=== PATIENT | female | born 1985 | race Caucasian/White ===

== ENCOUNTER 2017-08-16 07:19 | Emergency (ER) | payer OTHER ==
[~2017-08-16] VITALS: Ht 172.7 cm; Wt 64.0 kg
[~2017-08-16 07:19] MED LIST: BACT800T5 PO; OMEP20TA39 PO; PYRI200T4 PO
[2017-08-16 07:30] VITALS: BP 118/67; PULSE 63; RESP 18; O2SAT 100
--- NOTE | 2017-08-16 07:41 | PD ---
HPI Chief Complaint: Syncope/Near-Syncope Time Seen by Provider: 07:40 Travel History International Travel<30 days: No Contact w/Intl Traveler<30days: No Traveled to known affect area: No History of Present Illness HPI 32-year-old female came to the emergency room with history of a syncopal episode this morning when she was in the bathroom having a bowel movement. Patient says that she's been having some vaginal spotting. Patient is 5 and half weeks . She has had in vitro fertilization. This morning she went to use the restroom to have a bowel movement. After she was done she felt like she had to go some more and after that she felt lightheaded and passed out. Her found her slumped between the toilet and the wall next to the toilet. Patient says that she did hit her head when she fell. Currently she is awake, answering questions appropriately and has slight headache. No history of vomiting or diarrhea. No history of nausea vomiting. No history of fever or chills. As per the patient the so far has been going okay. She has never had any syncopal episodes in the past. Slight abdominal discomfort. Her vital signs were stable. Patient also says that for past 1 week her left calf has been cramping. No previous history of DVT or PE. [facility] Past Medical History Narrative Medical List of her past medical, surgical, social and family history is reviewed from the nursing note. Medical History: Denies Significant Hx Cancer: No (PRECANCEROUS CYSTS REMOVED FROM CERVIX) Gastrointestinal Disorders: Yes (GERD) GERD: Yes Reproductive: Yes ?: : 1 : 1 Past Surgical History Surgical History: No Previous Surgery Gynecologic Surgery: Yes (PRECANCEROUS CYSTS REMOVED FROM CERVIX) Other Surgery: Yes (BREAST AUGMENTATION) Social History Alcohol Use: No Tobacco Use: No Substance Use: No Allergies-Medications (Allergen,Severity, Reaction): Coded Allergies: No Known Allergies (Unverified , 05/02/16) Comments No known drug allergies. Reported Meds & Prescriptions Reported Meds & Active Scripts Active Reported Endometrin Supp (Progesterone (Vaginal) Supp) 100 Mg Supp 100 Mg VAGINAL TID NEB Omeprazole 20 Mg Tab 20 Mg PO DAILY Narrative Medication List of her home medications reviewed from the nursing note. Review of Systems Except as stated in HPI: all other systems reviewed are Neg Genitourinary: Positive: Vaginal Bleeding Neurologic: Positive: Syncope Physical Exam Narrative GENERAL: Awake, alert, no obvious distress SKIN: Focused skin assessment warm/dry. HEAD: Atraumatic. Normocephalic. EYES: Pupils equal and round. No scleral icterus. No injection or drainage. ENT: No nasal bleeding or discharge. Mucous membranes pink and moist. NECK: Trachea midline. No JVD. CARDIOVASCULAR: Regular rate and rhythm. No murmur appreciated. RESPIRATORY: No accessory muscle use. Clear to auscultation. Breath sounds equal bilaterally. GASTROINTESTINAL: Abdomen soft, non-tender, nondistended. Hepatic and splenic margins not palpable. MUSCULOSKELETAL: No obvious deformities. No clubbing. No cyanosis. No edema. NEUROLOGICAL: Awake and alert. No obvious cranial nerve deficits. Motor grossly within normal limits. Normal speech. PSYCHIATRIC: Appropriate mood and affect; insight and judgment normal. Data Data Last Documented VS Vital Signs Date Time Temp Pulse Resp B/P (MAP) Pulse Ox O2 Delivery O2 Flow Rate FiO2 08/16/17 08:18 100 Room Air 08/16/17 08:13 63 18 08/16/17 07:30 118/67 (84) Orders Orders Electrocardiogram (08/16/17 08:00) Basic Metabolic Panel (Bmp) (08/16/17 08:00) Complete Blood Count With Diff (08/16/17 08:00) Prothrombin Time / Inr (Pt) (08/16/17 08:00) Troponin I (08/16/17 08:00) Ecg Monitoring (08/16/17 08:00) Bilateral Bp Monitoring (08/16/17 08:00) Iv Access Insert/Monitor (08/16/17 08:00) Oximetry (08/16/17 08:00) Oxygen Administration (08/16/17 08:00) Sodium Chloride 0.9% Flush (Ns Flush) (08/16/17 08:00) Sodium Chlor 0.9% 1000 Ml Inj (Ns 1000 M (08/16/17 08:00) Us Leg Venous Doppler (08/16/17 ) Beta Hcg (Quant/Titer) (08/16/17 09:59) Us Pelvis (Ques Pr/Ect)W Trans (08/16/17 ) Ed Discharge Order (08/16/17 13:10) Labs Laboratory Tests Test 08/16/17 08:28 08/16/17 09:28 White Blood Count 6.0 TH/MM3 Red Blood Count 4.32 MIL/MM3 Hemoglobin 13.1 GM/DL Hematocrit 38.7 % Mean Corpuscular Volume 89.6 FL Mean Corpuscular Hemoglobin 30.4 PG Mean Corpuscular Hemoglobin Concent 33.9 % Red Cell Distribution Width 12.1 % Platelet Count 177 TH/MM3 Mean Platelet Volume 8.9 FL Neutrophils (%) (Auto) 54.6 % Lymphocytes (%) (Auto) 34.9 % Monocytes (%) (Auto) 6.9 % Eosinophils (%) (Auto) 3.1 % Basophils (%) (Auto) 0.5 % Neutrophils # (Auto) 3.3 TH/MM3 Lymphocytes # (Auto) 2.1 TH/MM3 Monocytes # (Auto) 0.4 TH/MM3 Eosinophils # (Auto) 0.2 TH/MM3 Basophils # (Auto) 0.0 TH/MM3 CBC Comment DIFF FINAL Differential Comment Prothrombin Time 10.9 SEC Prothromb Time International Ratio 1.0 RATIO Blood Urea Nitrogen 14 MG/DL Creatinine 0.69 MG/DL Random Glucose 118 MG/DL Calcium Level 8.8 MG/DL Sodium Level 137 MEQ/L Potassium Level 3.8 MEQ/L Chloride Level 104 MEQ/L Carbon Dioxide Level 25.2 MEQ/L Anion Gap 8 MEQ/L Estimat Glomerular Filtration Rate 100 ML/MIN Troponin I LESS THAN 0.02 NG/ML Human Chorionic Gonadotropin, Quant 34019 MIU/ML MDM Medical Decision Making Medical Screen Exam Complete: Yes Emergency Medical Condition: Yes Medical Record Reviewed: Yes Interpretation(s) Twelve-lead EKG was reviewed by me. Normal sinus rhythm, normal axis, nonspecific ST-T wave changes. Heart rate of 63 bpm. Differential Diagnosis Electrolyte abnormality, dehydration, ectopic Narrative Course 1 PM initial blood test results were within normal limits. Left leg ultrasound was negative for any DVT. Patient was given 1 L of IV fluid bolus. IV discussed all the test results with the patient and her said that they had contacted the OB who wanted to speak with me. I called and spoke with Dr. Dempsey who is patient's OB. As per her there is a 2% chance with in vitro fertilization for ectopic and hence she recommended an ultrasound. As per her patient's last beta-hCG that they had done on 08/09/2017 was 4837. I ordered a beta hCG which was more than 31,000. The pelvic ultrasound to rule out ectopic was done and has been reported by the radiologist as twin with cardiac activity noticed. At this point I will discharge her home. Patient does have some subchorionic hemorrhage. There is nothing else from ER standpoint to be done. Procedures EKG Prior to Arrival: No Physician Communication Physician Communication Dr. Dempsey Diagnosis Primary Impression: Twin Qualified Codes: O30.001 - Twin , unspecified number of placenta and unspecified number of amniotic sacs, first trimester Additional Impressions: First trimester bleeding Threatened Syncope Qualified Codes: R55 - Syncope and collapse Referrals: Primary Care Physician Additional Instructions: Please follow-up with your pick remover. No vaginal intercourse, no douching, no tampons. Drink lots of fluid, bedrest. Continue taking her vitamins and other medications you're supposed to be on for the in vitro fertilization. Med/Other Pt SpecificInfo: No Change to Meds Disposition: 01 DISCHARGE HOME Condition: Stable Antwon Romo MD Aug 16, 2017 07:41
[2017-08-16] MEDS ORDERED: OMEP20TA93 PO (07:45)
[2017-08-16] MEDS ORDERED: ENDO100S VAGINAL (07:45)
[2017-08-16] MEDS ORDERED: SODIUM CHLOR 0.9% 1000 ML INJ 1,000 ML IV ONE (08:00)
[2017-08-16] MEDS ORDERED: SODIUM CHLORIDE 0.9% FLUSH 10 ML FLUSH IVF PRN (08:00)
[2017-08-16 08:13] VITALS: PULSE 63; RESP 18; O2SAT 100
--- NOTE | 2017-08-16 09:05 | RADRPT ---
EXAM DATE/TIME: 08/16/2017 08:17 [facility] COMPARISON: No previous studies available for comparison. INDICATIONS : Left leg pain. MEDICAL HISTORY : Gastroesophageal reflux disease. Left leg pain. SURGICAL HISTORY : Pre cancerous cells removed from cervix. Breast augmentation. ENCOUNTER: Initial ACUITY: 3 days PAIN SCORE: 4/10 LOCATION: Left leg. TECHNIQUE: Venous ultrasound of the leg was performed from the inguinal ligament to the proximal calf. Real-jacinto e, color Doppler and spectral tracing, compression and augmentation techniques were used. FINDINGS: There is normal compressibility of the deep venous system from the inguinal region to the proximal ca lf. No echogenic clot is seen in the lumen of the common femoral, femoral, popliteal, and posterior tibial veins. There is a normal response of the venous system to proximal and distal augmentation an d respiration. CONCLUSION: 1. No sonographic evidence for left lower extremity DVT. Gregory Swain MD on August 16, 2017 at 9:03 Board Certified Radiologist. This report was verified electronically.
[2017-08-16 09:18] LABS: AUTOMATED NEUTROPHIL # 3.3 TH/MM3 (1.8-7.7); BASOPHIL % 0.5 % (0.0-2.0); EOSINOPHIL # 0.2 TH/MM3 (0-0.4); EOSINOPHIL % 3.1 % (0.0-4.0); HEMATOCRIT 38.7 % (35.0-46.0); HEMO FLAGS DIFF FINAL; LYMPH % 34.9 % (9.0-44.0); LYMPHOCYTE # 2.1 TH/MM3 (1.0-4.8); MEAN CELL VOLUME 89.6 FL (80.0-100.0); MEAN CORPUSCULAR HEMOGLOBIN 30.4 PG (27.0-34.0); MEAN CORPUSCULAR HGB CONC 33.9 % (32.0-36.0); MONO % 6.9 % (0.0-8.0); NEUT % 54.6 % (16.0-70.0); PLATELET COUNT 177 TH/MM3 (150-450); RED BLOOD COUNT 4.32 MIL/MM3 (4.00-5.30); RED CELL DISTRIBUTION WIDTH 12.1 % (11.6-17.2)
[2017-08-16 09:25] LABS: PROTHROMBIN TIME - PATIENT 10.9 SEC (9.8-11.6)
[2017-08-16 09:36] LABS: ANION GAP 8 MEQ/L (5-15); BICARBONATE 25.2 MEQ/L (21.0-32.0); BLOOD UREA NITROGEN 14 MG/DL (7-18); CHLORIDE 104 MEQ/L (98-107); GLOMERULAR FILTRATION RATE 100 ML/MIN (>89); POTASSIUM 3.8 MEQ/L (3.5-5.1); SODIUM (NA) 137 MEQ/L (136-145)
[2017-08-16 11:26] LABS: BETA HCG QUANT 31917 MIU/ML (0-5)
--- NOTE | 2017-08-16 11:46 | EKG ---
Date Performed: 08/16/2017 Time Performed: 08:37:16 PTAGE: 32 years EKG: Sinus rhythm NORMAL ECG NO PREVIOUS TRACING DOCTOR: Nicolas Castillo Interpretating Date/Time 08/16/2017 11:45:48
--- NOTE | 2017-08-16 12:17 | RADRPT ---
EXAM DATE/TIME: 08/16/2017 11:28 [facility] COMPARISON: No previous studies available for comparison. INDICATIONS : Pelvic cramping. LAB(S): Beta-hC,917 MEDICAL HISTORY : . Gastroesophageal reflux disease. Pelvic cramping. SURGICAL HISTORY : Precancerous cysts removed from cervix. ENCOUNTER: Initial ACUITY: 1 day PAIN SCORE: 2/10 LOCATION: Bilateral pelvis MEASUREMENTS: UTERUS: 7.0 x 3.5 x 5.1 cm ENDOMETRIAL STRIPE: 9 mm RIGHT OVARY: 3.5 x 1.3 x 1.6 cm LEFT OVARY: 2.9 x 1.6 x 2.7 cm FREE FLUID: No CROWN RUMP LENGTH: 1.7 cm = 6 WKS 0 DAYS FHR: 181 BPM FINDINGS: UTERUS: There appears to be a single gestational sac within the endometrial cavity. There appear to be 2 viab le Poles within the gestational sac with approximately 5 weeks and 5 days of gestational age. T here is an 8 mm x 6 mm complex area adjacent to the gestational sac. 2 separate heart beats are demonstrated. RIGHT OVARY: Ovary contains no mass or significant cystic lesion. LEFT OVARY: Ovary contains no mass or significant cystic lesion. MISCELLANEOUS: No free fluid. CONCLUSION: 1. There are 2 viable intrauterine pregnancies in what appears to be a single gestational sac. 2. 8mm subchorionic hemorrhage. Tavo Sanchez MD on August 16, 2017 at 12:10 Board Certified Radiologist. This report was verified electronically.
== END 2017-08-16 15:00 | disposition home or self-care (01) ==
LOC: NEPC 07:19
DX: O20.0 Threatened abortion (principal); O30.001 Twin pregnancy, unspecified number of placenta and unspecified number of amniotic sacs, first trimester; M79.605 Pain in left leg; Z3A.01 Less than 8 weeks gestation of pregnancy
CPT/HCPCS: 76700; 76817; 80048; 84484; 84702; 85025; 85610; 93005; 93971; 96360; 96361; 99285; J7030

== ENCOUNTER → 2017-10-27 | Outpatient (CLI) | payer OTHER ==
[~2017-10-27] MED LIST changes: -BACT800T5 PO; +ENDO100S VAGINAL; -OMEP20TA39 PO; +OMEP20TA93 PO; -PYRI200T4 PO
== END ==
LOC: HPND 09:15
PROVIDERS: ATTEND Obstetrics & Gynecology
DX: O09.812 Supervision of pregnancy resulting from assisted reproductive technology, second trimester (principal); O30.032 Twin pregnancy, monochorionic/diamniotic, second trimester
CPT/HCPCS: 76815; 76817

== ENCOUNTER → 2017-11-10 | Outpatient (CLI) | payer OTHER | LOC: HPND 09:02 | PROVIDERS: ATTEND Obstetrics & Gynecology | DX: O30.032 Twin pregnancy, monochorionic/diamniotic, second trimester (principal); O09.812 Supervision of pregnancy resulting from assisted reproductive technology, second trimester | CPT/HCPCS: 76811; 76812; 76817 ==

== ENCOUNTER → 2017-11-24 | Outpatient (CLI) | payer OTHER | LOC: HPND 08:41 | PROVIDERS: ATTEND Obstetrics & Gynecology | DX: O30.032 Twin pregnancy, monochorionic/diamniotic, second trimester (principal); O09.292 Supervision of pregnancy with other poor reproductive or obstetric history, second trimester; O09.812 Supervision of pregnancy resulting from assisted reproductive technology, second trimester | CPT/HCPCS: 76815; 76817 ==

== ENCOUNTER → 2017-12-31 | Emergency (ER) | payer OTHER ==
[2017-12-31 14:55] VITALS: PULSE 103
--- NOTE | 2017-12-31 15:11 | PD ---
HPI Chief Complaint Sharp abdominal pain Travel History International Travel<30 Days: No Contact w/Intl Traveler<30Days: No Known Affected Area: No History of Present Illness HPI 32-year-old 010, IUP at 25.3 care complicated by IVF , twin IUP, marginal cord insertion, history of LEEP The patient presents complaining of the onset of sharp left lower quadrant pain at 8:30 PM last night. She reports that this pain was sharp and stabbing in nature, lasting for only a few seconds, over the period of 15 minutes. She reports the pain had resolved within a period of 15 minutes. She denies that the pain was constant. She reports that the pain was improved with lying down or changing position. She reports the pain was worse with movement. She reports that second episode of that pain at 945 this morning that occurred intermittently between 945 and 10:30. She reports a occurred as frequently as about 6 times in 10 minutes. She reports the pain entirely resolved by 10:30 am and she has not felt the pain since. She reports she's had occasional nausea for the past 3 days. She denies any leaking of fluid or vaginal bleeding. She denies any uterine contractions or cramping. She reports good movement. Weeks Gestation: 25 Para: 0 : 2 Miscarriage: 1 : 0 History Past Medical History Medical History: Denies Significant Hx Obstetric History Obstetric History , SAB x1 History of infertility, s/p IVF History of abnormal PAP, s/p LEEP Past Surgical History Narrative Surgical IVF LEEP Breast augmentation [place] teeth extraction Family History Narrative Family History Noncontributory Social History Alcohol Use: No Tobacco Use: No Substance Abuse: No Allergies-Medications (Allergen,Severity, Reaction): Coded Allergies: No Known Allergies (Unverified , 05/02/16) Home Meds Reported Medications Progesterone (Vaginal) Supp (Endometrin Supp) 100 Mg Supp, 100 MG VAGINAL TID NEB 08/16/17 Omeprazole (Omeprazole) 20 Mg Tab, 20 MG PO DAILY, TAB 0 Refills 08/16/17 Review of Systems Except as stated in HPI: all other systems reviewed are Neg Physical Exam Narrative GENERAL: Well-nourished, well-developed patient. SKIN: Warm and dry. HEAD: Normocephalic and atraumatic. EYES: No scleral icterus. No injection or drainage. ENT: No nasal drainage noted. Mucous membranes pink. Airway patent. NECK: Supple, trachea midline. No JVD. CARDIOVASCULAR: Regular rate and rhythm without murmurs, gallops, or rubs. RESPIRATORY: Breath sounds equal bilaterally. No accessory muscle use. BREASTS: Deferred ABDOMEN/GI: Abdomen soft, non-tender, bowel sounds present, no rebound, no guarding, pain is reproducible bilateral motion of the uterus especially when pushing from the right lower quadrant to the left Gravid GENITOURINARY: External Genitalia: intact and normal in appearance. Grossly normal BUS, grossly normal rugae, physiologic discharge, no cervical or vaginal masses noted. SVE closed/thick/high, posterior. FHT's: Fetus A with heart tones in the 150s, moderate jail variability, and no decelerations. FHR reassuring and appropriate for gestational age. Fetus B with heart tones in the 130s, moderate jail variability, and no decelerations. FHR reassuring and appropriate for gestational age. EXTREMITIES: No cyanosis or edema. BACK: Nontender without obvious deformity. NEUROLOGICAL: Musculoskeletal: Awake and alert. Motor and sensory grossly within normal limits. Grossly normal Five out of 5 muscle strength in all muscle groups. Normal speech. Grossly normal range of motion, gait Psychiatric: Grossly normal memory and affect Data Data Orders Orders Vital Signs (Adult) .ON ADMISSION (12/31/17 14:59) ^ Labor Status (12/31/17 14:59) Urinalysis - C+S If Indicated (12/31/17 14:59) ^ Non Stress Test (12/31/17 14:59) ^ Hydration (12/31/17 14:59) Fibronectin (12/31/17 14:59) MDM Plan Assessment/plan: 1. IUP at 25.3 2. Twin IUP 3. Sharp abdominal pain: The patient has pain that is consistent with round ligament stretching, the pain is reproducible on examination. Comfort measures were discussed. The Etiology of round ligament stretching was discussed. There is no evidence of labor. The patient has a closed cervical exam and a negative fibronectin. There is no evidence of regular contractions on the tocometry. Some irritability was noted but this resolved with by mouth hydration. Strict labor precautions are given. Recommend light activity for comfort and until further evaluated by primary physician. 4. UA negative 5. well-being: Reassuring testing with heart rate is appropriate for gestational age for both fetuses. kick counts daily. 6. History of IVF 7. Follow up with primary OB in 2-3 days or sooner if needed. Diagnosis Diagnosis: Primary Impression: 25 weeks gestation of Additional Impressions: Round ligament pain False labor before 37 completed weeks of gestation, second trimester Twin in second trimester Disposition: 01 DISCHARGE HOME Condition: Jenny Begum MD Dec 31, 2017 15:11
[2017-12-31 15:46] LABS: BACTERIA, URINE OCC /hpf; BILIRUBIN, URINE NEG (NEG); BLOOD, URINE NEG (NEG); GLUCOSE,URINE NEG (NEG); KETONE, URINE NEG (NEG); NITRITE,URINE NEG (NEG); SQUAMOUS EPITHELIAL CELL URINE 17 /hpf (0-5); URINE COLOR LIGHT-YELLOW (YELLW/STRAW); URINE LEUKOCYTE ESTERASE TRACE (NEG)
== END | disposition home or self-care (01) ==
LOC: HOBED 12:31
DX: O26.892 Other specified pregnancy related conditions, second trimester (principal); R10.2 Pelvic and perineal pain; O47.02 False labor before 37 completed weeks of gestation, second trimester; O30.002 Twin pregnancy, unspecified number of placenta and unspecified number of amniotic sacs, second trimester; Z3A.25 25 weeks gestation of pregnancy
CPT/HCPCS: 76815; 81001; 82731

== ENCOUNTER → 2018-02-10 | Outpatient (CLI) | payer OTHER ==
[~2018-02-10] MED LIST changes: +BETAMETHASONE SOD PHOS/ACETATE SUSP 30 MG/5 ML VIAL IM ONE; +PREN1TAB45 PO
== END ==
LOC: HOBG 08:50
PROVIDERS: ATTEND Obstetrics & Gynecology
DX: Z34.83 Encounter for supervision of other normal pregnancy, third trimester (principal); O30.009 Twin pregnancy, unspecified number of placenta and unspecified number of amniotic sacs, unspecified trimester; Z3A.00 Weeks of gestation of pregnancy not specified
CPT/HCPCS: 96372; J0702

== ENCOUNTER 2018-02-28 09:22 | Emergency (ER) | payer OTHER ==
[~2018-02-28 09:22] MED LIST changes: -BETAMETHASONE SOD PHOS/ACETATE SUSP 30 MG/5 ML VIAL IM ONE; -PREN1TAB45 PO
[2018-02-28] MEDS ORDERED: PREN1TAB45 PO (09:41)
--- NOTE | 2018-02-28 10:28 | PD ---
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 This is a mono/di . Patient denies any loss of fluid, vaginal bleeding. Endorses movement. Patient stated that contractions started yesterday on and off and around 5 AM this morning became more regular and more frequent. Of note patient has had betamethasone 2 on 02/09 and 02/10. Weeks Gestation: 33 Para: 0 : 2 Miscarriage: 1 History Past Medical History Medical History: Denies Significant Hx Obstetric History Obstetric History 010 was achieved via IVF Spontaneous vaginal 1 History of LEEP procedure more than 12 years ago Past Surgical History Narrative Surgical Leep Procedure Breast augmentation Family History Narrative Family History Paternal uncle with history of hole in heart Social History Alcohol Use: No Tobacco Use: No Substance Abuse: No Allergies-Medications (Allergen,Severity, Reaction): Coded Allergies: No Known Allergies (Unverified Allergy, Unknown, 02/09/18) Home Meds Reported Medications Vit,Calc76/Iron/Folic (Pnv 29-1 Tablet) 29 Mg Iron-1 Mg Tablet, 1 TAB PO DAILY 02/28/18 Omeprazole (Omeprazole) 20 Mg Tab, 20 MG PO DAILY, TAB 0 Refills 08/16/17 Discontinued Reported Medications Progesterone (Vaginal) Supp (Endometrin Supp) 100 Mg Supp, 100 MG VAGINAL TID NEB 08/16/17 Narrative Medication Omeprazole vitamins Probiotics ASA 81 mg since 12 weeks gestation patient was placed on this by [facility] due to high risk per patient. Patient denies any history of preeclampsia or hypertension in the past. Iron supplements Review of Systems Except as stated in HPI: all other systems reviewed are Neg Physical Exam Narrative GENERAL: Well-nourished, well-developed patient. SKIN: Warm and dry. HEAD: Normocephalic and atraumatic. EYES: No scleral icterus. No injection or drainage. ENT: No nasal drainage noted. Mucous membranes pink. Airway patent. NECK: Supple, trachea midline. No JVD. CARDIOVASCULAR: Regular rate and rhythm without murmurs, gallops, or rubs. RESPIRATORY: Breath sounds equal bilaterally. No accessory muscle use. ABDOMEN/GI: Abdomen soft, non-tender, bowel sounds present, no rebound, no guarding Gravid to 33 weeks size GENITOURINARY: External Genitalia: intact and normal in appearance Cervix: Posterior Dilatation: 1 Effacement: 80-90% Station: -3 Presentation: First twin vertex Membranes: intact Uterine Contractions: mild contractions every 4mins FHT's: Twin A Category: 1 Baseline: 150 Reactive: yes Variability: moderate Decels: none Twin B Category: 1 Baseline: 150 Reactive: yes Variability: moderate Decels: none EXTREMITIES: No cyanosis or edema. BACK: Nontender without obvious deformity. No CVA tenderness. NEUROLOGICAL: Awake and alert. Motor and sensory grossly within normal limits. Five out of 5 muscle strength in all muscle groups. Normal speech. 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 Patient placed on observation for threaten labor. IUP at 33 weeks gestation 1. 1 LR bolus, procardia 10mg Q19sdiy, fentanyl 25mcg x1 2. continue to monitor contractions for threaten labor 3. Category 1 for both twins, NST reassuring 4. cervical exam today -90/-3 DW Simran Dueñas MD, R1 February 28, 2018 10:28
[2018-02-28] MEDS ORDERED: LACTATED RINGER'S 1000 ML INJ 1,000 ML IV ONE (10:30)
[2018-02-28] MEDS: NIFEdipine 10 MG CAP PO SCH ×4 (10:32→12:19)
[2018-02-28] MEDS: BETAMETHASONE SOD PHOS/ACETATE SUSP 30 MG/5 ML VIAL IM SCH (14:51)
[2018-02-28 15:40] LABS: BILIRUBIN, URINE NEG (NEG); BLOOD, URINE NEG (NEG); GLUCOSE,URINE NEG (NEG); KETONE, URINE NEG (NEG); NITRITE,URINE NEG (NEG); URINE COLOR YELLOW (YELLW/STRAW); URINE LEUKOCYTE ESTERASE NEG (NEG)
[2018-02-28] MEDS ORDERED: ACETAMINOPHEN/HYDROcodone 325 MG/5 MG TAB PO ONE (15:45)
[2018-02-28] MEDS ORDERED: SODIUM CHLORIDE FLUSH PRN IV FLUSH (15:45)
[2018-02-28 15:50] LABS: BACTERIA, URINE RARE /hpf; SQUAMOUS EPITHELIAL CELL URINE 2 /hpf (0-5)
[2018-02-28 15:52] LABS: ALBUMIN 2.7 GM/DL (3.4-5.0); ALT (GPT) 38 U/L (10-53); AST (GOT) 27 U/L (15-37); BICARBONATE 21.3 MEQ/L (21.0-32.0); BLOOD UREA NITROGEN 8 MG/DL (7-18); CALCIUM 9.2 MG/DL (8.5-10.1); CHLORIDE 104 MEQ/L (98-107); CREATININE 0.52 MG/DL (0.50-1.00); DIRECT BILIRUBIN ADULT LESS THAN 0.1 MG/DL (0.0-0.2); GLOMERULAR FILTRATION RATE 138 ML/MIN (>89); GLUCOSE,RANDOM 54 MG/DL (74-106); SODIUM (NA) 139 MEQ/L (136-145)
[2018-02-28 15:58] LABS: AUTOMATED NEUTROPHIL # 11.1 TH/MM3 (1.8-7.7); BASOPHIL % 0.2 % (0.0-2.0); EOSINOPHIL # 0.1 TH/MM3 (0-0.4); EOSINOPHIL % 0.8 % (0.0-4.0); HEMOGLOBIN 11.6 GM/DL (11.6-15.3); LYMPH % 12.2 % (9.0-44.0); LYMPHOCYTE # 1.8 TH/MM3 (1.0-4.8); MEAN CELL VOLUME 78.6 FL (80.0-100.0); MEAN CORPUSCULAR HEMOGLOBIN 24.6 PG (27.0-34.0); MEAN CORPUSCULAR HGB CONC 31.3 % (32.0-36.0); MEAN PLATELET VOLUME 7.9 FL (7.0-11.0); MONO % 10.3 % (0.0-8.0); MONOCYTE # 1.5 TH/MM3 (0-0.9); NEUT % 76.5 % (16.0-70.0); PLATELET COUNT 187 TH/MM3 (150-450); RED CELL DISTRIBUTION WIDTH 14.9 % (11.6-17.2); WHITE BLOOD COUNT 14.6 TH/MM3 (4.0-11.0)
[2018-02-28 16:01] LABS: ALKALINE PHOSPHATASE 207 U/L (45-117); TOTAL BILIRUBIN ADULT 0.2 MG/DL (0.2-1.0); TOTAL PROTEIN 7.1 GM/DL (6.4-8.2)
[2018-02-28] MEDS ORDERED: MAGNESIUM SULFATE 40 GM PREMIX 1,000 ML ONE (18:21)
[2018-02-28] MEDS ORDERED: MAGNESIUM SULFATE 40 GM PREMIX 1,000 ML IV SCH (18:21)
[2018-02-28] MEDS ORDERED: MAGNESIUM SULFATE 4 GM PREMIX 100 ML ONE (18:21)
--- NOTE | 2018-02-28 18:21 | PD.OB.ANTE ---
Subjective Interval History 33 yo with 33 5/7 twin IUP with contractions and cervical change. Sent to [facility] from ob diagnostics this am. Cervix has changed to 1-2 / 100% / -2 anterior and soft. Twin A is vertex. Has received first dose of steroids. Twin A very reactive. Twin B difficult to trace Ob DX sonogram reassuring and no discordancy or increased dopplers. Mom can feel cramping. No leaking or bleeding No nausea, vomiting, BECK or blurred vision. Initial blood pressure mildly elevated. Objective Lab & Micro Results Test 02/28/18 09:45 02/28/18 10:38 Urine Color YELLOW Urine Turbidity CLEAR Urine pH 7.0 Urine Specific [place] 1.008 Urine Protein NEG mg/dL Urine Glucose (UA) NEG mg/dL Urine Ketones NEG mg/dL Urine Occult Blood NEG Urine Nitrite NEG Urine Bilirubin NEG Urine Urobilinogen 0.2 MG/DL Urine Leukocyte Esterase NEG Urine WBC LESS THAN 1 /hpf Urine Squamous Epithelial Cells 2 /hpf Urine Bacteria RARE /hpf Microscopic Urinalysis Comment CULT NOT INDICATED Urine Random Creatinine 32 MG/DL Urine Random Total Protein 8 MG/DL Urine Protein/Creatinine Ratio 0.25 Urine Opiates Screen NEG Urine Barbiturates Screen NEG Urine Amphetamines Screen NEG Urine Benzodiazepines Screen NEG Urine Cocaine Screen NEG Urine Cannabinoids Screen NEG White Blood Count 14.6 TH/MM3 Red Blood Count 4.70 MIL/MM3 Hemoglobin 11.6 GM/DL Hematocrit 37.0 % Mean Corpuscular Volume 78.6 FL Mean Corpuscular Hemoglobin 24.6 PG Mean Corpuscular Hemoglobin Concent 31.3 % Red Cell Distribution Width 14.9 % Platelet Count 187 TH/MM3 Mean Platelet Volume 7.9 FL Neutrophils (%) (Auto) 76.5 % Lymphocytes (%) (Auto) 12.2 % Monocytes (%) (Auto) 10.3 % Eosinophils (%) (Auto) 0.8 % Basophils (%) (Auto) 0.2 % Neutrophils # (Auto) 11.1 TH/MM3 Lymphocytes # (Auto) 1.8 TH/MM3 Monocytes # (Auto) 1.5 TH/MM3 Eosinophils # (Auto) 0.1 TH/MM3 Basophils # (Auto) 0.0 TH/MM3 CBC Comment AUTO DIFF Differential Comment AUTO DIFF CONFIRMED Platelet Estimate NORMAL Platelet Morphology Comment NORMAL Blood Urea Nitrogen 8 MG/DL Creatinine 0.52 MG/DL Random Glucose 54 MG/DL Total Protein 7.1 GM/DL Albumin 2.7 GM/DL Calcium Level 9.2 MG/DL Uric Acid 3.2 MG/DL Alkaline Phosphatase 207 U/L Aspartate Amino Transf (AST/SGOT) 27 U/L Alanine Aminotransferase (ALT/SGPT) 38 U/L Total Bilirubin 0.2 MG/DL Direct Bilirubin LESS THAN 0.1 MG/DL Sodium Level 139 MEQ/L Potassium Level 3.7 MEQ/L Chloride Level 104 MEQ/L Carbon Dioxide Level 21.3 MEQ/L Anion Gap 14 MEQ/L Estimat Glomerular Filtration Rate 138 ML/MIN Physical Exam GENERAL: Well-nourished, well-developed patient. CARDIOVASCULAR: Regular rate and rhythm without murmurs, gallops, or rubs. RESPIRATORY: Breath sounds equal bilaterally. No accessory muscle use. ABDOMEN/GI: Abdomen soft, non-tender. Fundus: 36 GENITOURINARY: External Genitalia: intact and normal in appearance cervix as above pelvis clinically adequate EXTREMITIES: No cyanosis or edema, non-tender, without signs of DVT. Assessment and Plan Assessment and Plan twin IUP mono/di contractions with cervical change mildly elevated BP Plan initiate MgSo4 for neuroprotection repeat steroids at 3 am emperic antibiotic for elevated WBC with left shift would deliver vaginally at this point unless other parameters suggest otherwise. Michelle Serrano MD February 28, 2018 18:21
[2018-02-28] MEDS ORDERED: MAGNESIUM SULFATE 4 GM PREMIX 100 ML IV ONE (18:30)
[2018-02-28] MEDS ORDERED: ONDANSETRON ODT 4 MG TAB PO PRN (18:30)
[2018-02-28] MEDS ORDERED: ACETAMINOPHEN 325 MG TAB PO PRN (18:30)
[2018-02-28] MEDS ORDERED: ZOLPIDEM TARTRATE 5 MG TAB PO PRN (18:30)
[2018-02-28] MEDS ORDERED: SODIUM CHLORIDE 0.9% FLUSH 10 ML FLUSH IV FLUSH PRN (18:30)
[2018-02-28] MEDS ORDERED: CALCIUM GLUCONATE 10% 1 GM/10 ML VIAL IV PUSH PRN (18:30)
[2018-02-28] MEDS: LACTATED RINGER'S 1000 ML INJ 1,000 ML IV SCH ×2 (18:39→20:37)
[2018-02-28] MEDS: DOCUSATE SODIUM 100 MG CAP PO PRN (20:26)
[2018-02-28] MEDS: SODIUM CHLORIDE 0.9% FLUSH 10 ML FLUSH IV FLUSH SCH (20:38)
[2018-02-28] MEDS ORDERED: SODIUM CHLORIDE FLUSH BID IV FLUSH SCH (21:00)
[2018-03-01] MEDS: BETAMETHASONE SOD PHOS/ACETATE SUSP 30 MG/5 ML VIAL IM SCH (02:30)
[2018-03-01 05:54] LABS: HEMATOCRIT 31.9 % (35.0-46.0); HEMOGLOBIN 10.1 GM/DL (11.6-15.3); MEAN CELL VOLUME 78.2 FL (80.0-100.0); MEAN CORPUSCULAR HEMOGLOBIN 24.8 PG (27.0-34.0); MEAN CORPUSCULAR HGB CONC 31.7 % (32.0-36.0); MEAN PLATELET VOLUME 7.5 FL (7.0-11.0); PLATELET COUNT 167 TH/MM3 (150-450); RED BLOOD COUNT 4.08 MIL/MM3 (4.00-5.30); RED CELL DISTRIBUTION WIDTH 14.9 % (11.6-17.2); WHITE BLOOD COUNT 16.1 TH/MM3 (4.0-11.0)
[2018-03-01 06:21] LABS: ALBUMIN 2.2 GM/DL (3.4-5.0); ALKALINE PHOSPHATASE 182 U/L (45-117); ALT (GPT) 31 U/L (10-53); AST (GOT) 22 U/L (15-37); BICARBONATE 21.9 MEQ/L (21.0-32.0); BLOOD UREA NITROGEN 7 MG/DL (7-18); CALCIUM 7.6 MG/DL (8.5-10.1); CHLORIDE 106 MEQ/L (98-107); GLOMERULAR FILTRATION RATE 144 ML/MIN (>89); GLUCOSE,RANDOM 132 MG/DL (74-106); SODIUM (NA) 139 MEQ/L (136-145); TOTAL BILIRUBIN ADULT 0.2 MG/DL (0.2-1.0); TOTAL PROTEIN 6.2 GM/DL (6.4-8.2)
--- NOTE | 2018-03-01 08:17 | PD.OB.ANTE ---
Subjective Interval History 34 week mono/di twins with cervical change completed mag for neuroprophylaxsis has received steroids and one day antibiotics still changing cervix gradually today /-1 for A in vertex position anticipate in 2-3 days Objective Lab & Micro Results Test 02/28/18 09:45 02/28/18 10:38 03/01/18 05:00 Urine Color YELLOW Urine Turbidity CLEAR Urine pH 7.0 Urine Specific [place] 1.008 Urine Protein NEG mg/dL Urine Glucose (UA) NEG mg/dL Urine Ketones NEG mg/dL Urine Occult Blood NEG Urine Nitrite NEG Urine Bilirubin NEG Urine Urobilinogen 0.2 MG/DL Urine Leukocyte Esterase NEG Urine WBC LESS THAN 1 /hpf Urine Squamous Epithelial Cells 2 /hpf Urine Bacteria RARE /hpf Microscopic Urinalysis Comment CULT NOT INDICATED Urine Random Creatinine 32 MG/DL Urine Random Total Protein 8 MG/DL Urine Protein/Creatinine Ratio 0.25 Urine Opiates Screen NEG Urine Barbiturates Screen NEG Urine Amphetamines Screen NEG Urine Benzodiazepines Screen NEG Urine Cocaine Screen NEG Urine Cannabinoids Screen NEG White Blood Count 14.6 TH/MM3 16.1 TH/MM3 Red Blood Count 4.70 MIL/MM3 4.08 MIL/MM3 Hemoglobin 11.6 GM/DL 10.1 GM/DL Hematocrit 37.0 % 31.9 % Mean Corpuscular Volume 78.6 FL 78.2 FL Mean Corpuscular Hemoglobin 24.6 PG 24.8 PG Mean Corpuscular Hemoglobin Concent 31.3 % 31.7 % Red Cell Distribution Width 14.9 % 14.9 % Platelet Count 187 TH/MM3 167 TH/MM3 Mean Platelet Volume 7.9 FL 7.5 FL Neutrophils (%) (Auto) 76.5 % Lymphocytes (%) (Auto) 12.2 % Monocytes (%) (Auto) 10.3 % Eosinophils (%) (Auto) 0.8 % Basophils (%) (Auto) 0.2 % Neutrophils # (Auto) 11.1 TH/MM3 Lymphocytes # (Auto) 1.8 TH/MM3 Monocytes # (Auto) 1.5 TH/MM3 Eosinophils # (Auto) 0.1 TH/MM3 Basophils # (Auto) 0.0 TH/MM3 CBC Comment AUTO DIFF Differential Comment AUTO DIFF CONFIRMED Platelet Estimate NORMAL Platelet Morphology Comment NORMAL Blood Urea Nitrogen 8 MG/DL 7 MG/DL Creatinine 0.52 MG/DL 0.50 MG/DL Random Glucose 54 MG/DL 132 MG/DL Total Protein 7.1 GM/DL 6.2 GM/DL Albumin 2.7 GM/DL 2.2 GM/DL Calcium Level 9.2 MG/DL 7.6 MG/DL Uric Acid 3.2 MG/DL 3.3 MG/DL Alkaline Phosphatase 207 U/L 182 U/L Aspartate Amino Transf (AST/SGOT) 27 U/L 22 U/L Alanine Aminotransferase (ALT/SGPT) 38 U/L 31 U/L Total Bilirubin 0.2 MG/DL 0.2 MG/DL Direct Bilirubin LESS THAN 0.1 MG/DL Sodium Level 139 MEQ/L 139 MEQ/L Potassium Level 3.7 MEQ/L 3.8 MEQ/L Chloride Level 104 MEQ/L 106 MEQ/L Carbon Dioxide Level 21.3 MEQ/L 21.9 MEQ/L Anion Gap 14 MEQ/L 11 MEQ/L Estimat Glomerular Filtration Rate 138 ML/MIN 144 ML/MIN Physical Exam GENERAL: Well-nourished, well-developed patient. CARDIOVASCULAR: Regular rate and rhythm without murmurs, gallops, or rubs. RESPIRATORY: Breath sounds equal bilaterally. No accessory muscle use. ABDOMEN/GI: Abdomen soft, non-tender. Fundus: [-] GENITOURINARY: External Genitalia: intact and normal in appearance Cervix: [-] Dilatation: [-] Effacement: [-] Station: [-] Presentation: [-] Membranes: [-] Uterine Contractions: [-] FHT's: Category: [-] Baseline: [-] Reactive: [-] Variability: [-] Decels: [-] EXTREMITIES: No cyanosis or edema, non-tender, without signs of DVT. Assessment and Plan Assessment and Plan twin IUP mono/di contractions with cervical change mildly elevated BP Plan initiate MgSo4 for neuroprotection repeat steroids at 3 am emperic antibiotic for elevated WBC with left shift would deliver vaginally at this point unless other parameters suggest otherwise. Michelle Serrano MD March 01, 2018 08:17
[2018-03-01] MEDS: SODIUM CHLORIDE 0.9% FLUSH 10 ML FLUSH IV FLUSH SCH ×2 (09:00→21:00)
[2018-03-01] MEDS: MULTIVIT/MIN/PREN/FOL AC/IRON PRENATAL TAB PO SCH (09:00)
[2018-03-01] MEDS: DOCUSATE SODIUM 100 MG CAP PO PRN (10:05)
[2018-03-01] MEDS: LACTATED RINGER'S 1000 ML INJ 1,000 ML IV SCH (21:01)
[2018-03-01] MEDS: diphenhydrAMINE HCL 50 MG CAP PO PRN (23:03)
--- NOTE | 2018-03-02 08:16 | PD.OB.ANTE ---
Subjective Diagnosis: (1) contractions Diagnosis: Principal (2) Monochorionic diamniotic twin gestation in third trimester Diagnosis: Principal Interval History 34w1d mono/di twins with cervical change since admission, no complaints this morning, feeling comfortable, denies VB, LOF, endorses good FM completed mag for neuroprophylaxsis has received steroids and one day antibiotics yesterday 3/100/-1 for A in vertex position no exam this AM as pt comfortable w no complaints anticipate in 2-3 days Antepartum ROS: Reports: movement normal, Denies: New complaints, Loss of fluid, Vaginal bleeding, Contractions, Other Objective Physical Exam GENERAL: Well-nourished, well-developed patient. CARDIOVASCULAR: Regular rate and rhythm without murmurs, gallops, or rubs. RESPIRATORY: Breath sounds equal bilaterally. No accessory muscle use. ABDOMEN/GI: Abdomen soft, non-tender. Fundus: [twins, larger than dates] GENITOURINARY: External Genitalia: deferred exam today FHT's: Category: [I x 2] Baseline: [140s, 150s] Reactive: [ y x 2] Variability: [ y x 2] Decels: [ n x 2] EXTREMITIES: No cyanosis or edema, non-tender, without signs of DVT. Assessment and Plan Problem List: (1) contractions ICD Codes: O47.9 - False labor, unspecified Status: Acute (2) Monochorionic diamniotic twin gestation in third trimester ICD Codes: O30.033 - Twin , monochorionic/diamniotic, third trimester Status: Acute Assessment and Plan twin IUP mono/di 34w1d today contractions with cervical change since admission, comfortable currently, remain inpt as anticipate delivery due to advanced effacement/dilation mildly elevated BP s/p MgSo4 for neuroprotection s/p betamethasone x 2 doses s/p emperic antibiotic for elevated WBC with left shift on admission would deliver vaginally at this point unless other parameters suggest otherwise. plan for growth scan as planned 03/03/18 Margarita Culver MD March 02, 2018 08:16
[2018-03-02] MEDS: MULTIVIT/MIN/PREN/FOL AC/IRON PRENATAL TAB PO SCH (09:00)
[2018-03-02] MEDS: LACTATED RINGER'S 1000 ML INJ 1,000 ML IV SCH (10:21)
[2018-03-02] MEDS: DOCUSATE SODIUM 100 MG CAP PO PRN (10:51)
[2018-03-02] MEDS: diphenhydrAMINE HCL 50 MG CAP PO PRN (22:58)
--- NOTE | 2018-03-03 08:13 | PD.OB.ANTE ---
Subjective Diagnosis: (1) contractions (2) Monochorionic diamniotic twin gestation in third trimester Interval History +FM, no ctx, no LOF, no VB, getting US today Objective Vital Signs vss afeb Physical Exam GENERAL: Well-nourished, well-developed patient. CARDIOVASCULAR: Regular rate and rhythm without murmurs, gallops, or rubs. RESPIRATORY: Breath sounds equal bilaterally. No accessory muscle use. ABDOMEN/GI: Abdomen soft, non-tender. gravid Fundus: [-] GENITOURINARY: External Genitalia: intact and normal in appearance Cervix: [-] deferred Dilatation: [-] Effacement: [-] Station: [-] Presentation: [-] Membranes: [-] Uterine Contractions: [-] FHT's: Category: [-] 1 Baseline: [-] 130-140 x2 Reactive: [-] Rx2 Variability: [-] good Decels: [-] EXTREMITIES: No cyanosis or edema, non-tender, without signs of DVT. Assessment and Plan Problem List: (1) contractions ICD Codes: O47.9 - False labor, unspecified Status: Acute (2) Monochorionic diamniotic twin gestation in third trimester ICD Codes: O30.033 - Twin , monochorionic/diamniotic, third trimester Status: Acute Assessment and Plan twin IUP mono/di 34w2d today contractions with cervical change since admission, comfortable currently, remain inpt as anticipate delivery due to advanced effacement/dilation mildly elevated BP s/p MgSo4 for neuroprotection s/p betamethasone x 2 doses s/p emperic antibiotic for elevated WBC with left shift on admission would deliver vaginally at this point unless other parameters suggest otherwise. plan for growth scan as planned 03/03/18 Annelise Elizondo MD March 03, 2018 08:13
[2018-03-03] MEDS: DOCUSATE SODIUM 100 MG CAP PO PRN (08:27)
[2018-03-03] MEDS: MULTIVIT/MIN/PREN/FOL AC/IRON PRENATAL TAB PO SCH (08:27)
--- NOTE | 2018-03-03 12:36 | PD.OB.ANTE ---
Subjective Diagnosis: (1) contractions (2) Monochorionic diamniotic twin gestation in third trimester Interval History No contractions since wednesday no leaking, bleeding no HAs, N, V, Blurred vision or RUQT moving about room in regular clothing Objective Physical Exam GENERAL: Well-nourished, well-developed patient. CARDIOVASCULAR: Regular rate and rhythm without murmurs, gallops, or rubs. RESPIRATORY: Breath sounds equal bilaterally. No accessory muscle use. ABDOMEN/GI: Abdomen soft, non-tender. Fundus: 38 GENITOURINARY: External Genitalia: intact and normal in appearance 1005/3/-1 (NO CHANGE FROM WEDNESDAY)A FHT's: REACTIVE x 2 EXTREMITIES: No cyanosis or edema, non-tender, without signs of DVT. Verbal report is that A 5pounds 3 ounces and B 3 pounds 15 ounces with normal dopplers and other parameters Couple live 10 minutes away. Assessment and Plan Problem List: (1) contractions ICD Codes: O47.9 - False labor, unspecified Status: Acute (2) Monochorionic diamniotic twin gestation in third trimester ICD Codes: O30.033 - Twin , monochorionic/diamniotic, third trimester Status: Acute Assessment and Plan twin IUP mono/di 34w2d today contractions with cervical change since admission, comfortable currently, remain inpt as anticipate delivery due to advanced effacement/dilation mildly elevated BP s/p MgSo4 for neuroprotection s/p betamethasone x 2 doses s/p emperic antibiotic for elevated WBC with left shift on admission would deliver vaginally at this point unless other parameters suggest otherwise. plan for growth scan as planned 03/03/18 03/03/18 noon 34+ week mono/di twins, both vertex; stable 3 cm dilation question of increasing growth discordancy with other parameters normal Desire home for a few days with strict counseling and have my cell phone would return Wednesday for NST x2 and cervical check would return Wednesday for interval weight check (today's was "informal" and not recorded Be ready for delivery at any evaluation. given strict parameters of when to call or come right in. Michelle Serrano MD March 03, 2018 12:36
--- NOTE | 2018-03-03 12:38 | HHI.DCPOC ---
Discharge Care Plan Report Symptoms to Your Doctor -Temperature above 100.5 degrees -Redness, of incision or excessive or foul smelling drainage -Unusual pain or calf pain -Increased vaginal bleeding -Painful or difficulty urinating -Feelings of extreme sadness or anxiety after 2 weeks Goals to Promote Your Health * To prevent worsening of your condition and complications * To maintain your health at the optimal level Directions to Meet Your Goals Take your medications as prescribed Follow your dietary instruction Follow activity as directed Ensure plenty of rest for recovery Drink fluids for hydration Keep your appointments as scheduled Take your immunizations and boosters as scheduled If your symptoms worsen call your PCP, if no PCP go to Urgent Care Center or Emergency Room Smoking is Dangerous to Your Health. Avoid second hand smoke Call the 24-hour crisis hotline for domestic abuse at Michelle Serrano MD March 03, 2018 12:38
== END 2018-03-03 16:12 | disposition home or self-care (01) ==
LOC: HOBED 09:22 → H2EA 12:28 → UNDOADMOB 12:28 → H2EB 12:47 → H2EA 12:47 → HOBED 03-03 16:12 → UNDODISOB 03-03 16:12
DX: O60.03 Preterm labor without delivery, third trimester (principal); O30.033 Twin pregnancy, monochorionic/diamniotic, third trimester; O99.113 Other diseases of the blood and blood-forming organs and certain disorders involving the immune mechanism complicating pregnancy, third trimester; D72.829 Elevated white blood cell count, unspecified; R03.0 Elevated blood-pressure reading, without diagnosis of hypertension; Z3A.34 34 weeks gestation of pregnancy; Z79.899 Other long term (current) drug therapy
CPT/HCPCS: 59025; 76818; 76819; 76820; 80053; 80307; 81001; 82248; 82570; 84156; 84550; 85025; 85027; 86850; 86900; 86901; 96361; 96374; 99284; G0481; J0690; J0702; J3010; J3475; J7120; Q0163

== ENCOUNTER 2018-03-05 10:44 | Emergency (ER) | payer OTHER ==
[~2018-03-05 10:44] MED LIST changes: -ENDO100S VAGINAL; +PREN1TAB45 PO
--- NOTE | 2018-03-05 12:12 | PD ---
HPI Chief Complaint mono di twins, h/o ptl Date Seen: March 05, 2018 Time Seen: 11:57 Travel History International Travel<30 Days: No Contact w/Intl Traveler<30Days: No Known Affected Area: No History of Present Illness HPI pt. is a 33 y/o @ 34 4/7 weeks w/ mono di twins, present for nst and cervical check 2/2 h/o ptl. pt. was admitted and treated for ptl. Weeks Gestation: 34 Para: 0 : 2 History Past Medical History Medical History: Denies Significant Hx Obstetric History Obstetric History , sab x 1 Past Surgical History Surgical History: No Previous Surgery Family History Family History: Negative Social History Alcohol Use: No Tobacco Use: No Substance Abuse: No Allergies-Medications (Allergen,Severity, Reaction): Coded Allergies: No Known Allergies (Verified Allergy, Unknown, 03/05/18) Home Meds Reported Medications Vit,Calc76/Iron/Folic (Pnv 29-1 Tablet) 29 Mg Iron-1 Mg Tablet, 1 TAB PO DAILY 02/28/18 Omeprazole (Omeprazole) 20 Mg Tab, 20 MG PO DAILY, TAB 0 Refills 08/16/17 Discontinued Reported Medications Progesterone (Vaginal) Supp (Endometrin Supp) 100 Mg Supp, 100 MG VAGINAL TID NEB 08/16/17 Review of Systems Except as stated in HPI: all other systems reviewed are Neg Physical Exam Narrative GENERAL: Well-nourished, well-developed patient. SKIN: Warm and dry. HEAD: Normocephalic and atraumatic. EYES: No scleral icterus. No injection or drainage. ENT: No nasal drainage noted. Mucous membranes pink. Airway patent. NECK: Supple, trachea midline. No JVD. CARDIOVASCULAR: Regular rate and rhythm without murmurs, gallops, or rubs. RESPIRATORY: Breath sounds equal bilaterally. No accessory muscle use. ABDOMEN/GI: Abdomen soft, non-tender, bowel sounds present, no rebound, no guarding Gravid GENITOURINARY: External Genitalia: intact and normal in appearance Cervix: mid Dilatation: 1 Effacement: 100 Station: -1 Membranes: intact Uterine Contractions: irreg FHT's: Category: 1 x 2 Reactive: + x 2 Variability: mod x 2 EXTREMITIES: No cyanosis or edema. BACK: Nontender without obvious deformity. No CVA tenderness. NEUROLOGICAL: Awake and alert. Motor and sensory grossly within normal limits. Five out of 5 muscle strength in all muscle groups. Normal speech. Data Data Vital Signs Reviewed: Yes Orders Orders [employer] Clear For Discharge (03/05/18 ) MDM Plan pt. to be d/c to ome. fht reassuring x 2. not in labor. pt. to f/u as sched. given precautions for return. Diagnosis Diagnosis: Primary Impression: Monochorionic diamniotic twin gestation in third trimester Additional Impressions: contractions 34 weeks gestation of Disposition: 01 DISCHARGE HOME Pj Holley Jr., MD March 05, 2018 12:12
== END 2018-03-05 12:09 | disposition home or self-care (01) ==
LOC: HOBED 10:44
DX: O47.03 False labor before 37 completed weeks of gestation, third trimester (principal); O30.033 Twin pregnancy, monochorionic/diamniotic, third trimester; Z3A.34 34 weeks gestation of pregnancy
CPT/HCPCS: 59025

== ENCOUNTER 2018-03-08 13:29 | Inpatient (IN) | payer OTHER ==
[~2018-03-08] VITALS: Ht 172.7 cm; Wt 90.7 kg
[2018-03-08] MEDS ORDERED: LACTATED RINGER'S 1000 ML INJ 1,000 ML IV PRN (14:21)
[2018-03-08] MEDS ORDERED: LIDOCAINE HCL 1% 50 ML VIAL I-DERMAL PRN (14:30)
[2018-03-08] MEDS ORDERED: SODIUM CHLORID 0.9% 500 ML INJ 500 ML IV PRN (14:30)
[2018-03-08] MEDS ORDERED: LIDOCAINE HCL 1% 50 ML VIAL INFIL PRN (14:30)
[2018-03-08] MEDS ORDERED: OXYTOCIN 30 UNITS-500ML PREMIX 500 ML IV ONE (14:30)
[2018-03-08] MEDS ORDERED: MINERAL OIL 10 ML VIAL TOPICAL PRN (14:30)
[2018-03-08] MEDS ORDERED: CITRIC ACID-SODIUM CITRATE LIQ 30 ML UDC PO SCH (14:30)
[2018-03-08] MEDS: LACTATED RINGER'S 1000 ML INJ 1,000 ML IV SCH ×2 (14:40→20:50)
[2018-03-08] MEDS ORDERED: SODIUM CHLOR 0.9% 1000 ML INJ 1,000 ML IV PRN (14:41)
[2018-03-08 15:25] LABS: AUTOMATED NEUTROPHIL # 10.5 TH/MM3 (1.8-7.7); BASOPHIL % 0.1 % (0.0-2.0); EOSINOPHIL # 0.1 TH/MM3 (0-0.4); EOSINOPHIL % 0.8 % (0.0-4.0); HEMATOCRIT 35.4 % (35.0-46.0); HEMOGLOBIN 11.5 GM/DL (11.6-15.3); LYMPH % 15.1 % (9.0-44.0); LYMPHOCYTE # 2.1 TH/MM3 (1.0-4.8); MEAN CELL VOLUME 76.6 FL (80.0-100.0); MEAN CORPUSCULAR HEMOGLOBIN 24.9 PG (27.0-34.0); MEAN CORPUSCULAR HGB CONC 32.5 % (32.0-36.0); MONO % 8.1 % (0.0-8.0); MONOCYTE # 1.1 TH/MM3 (0-0.9); NEUT % 75.9 % (16.0-70.0); PLATELET COUNT 246 TH/MM3 (150-450); RED BLOOD COUNT 4.62 MIL/MM3 (4.00-5.30); WHITE BLOOD COUNT 13.8 TH/MM3 (4.0-11.0)
[2018-03-08] MEDS ORDERED: ACETAMINOPHEN 325 MG TAB PO ONE (16:00)
[2018-03-08 16:37] LABS: BANDS 2 % (0-6); LYMPHOCYTES 12 % (9-44); METAMYELOCYTES 2 % (0-1); MONOCYTES 5 % (0-8); NEUTROPHIL # MANUAL DIFF 11.5 TH/MM3 (1.8-7.7)
[2018-03-08 16:48] LABS: BILIRUBIN, URINE NEG (NEG); BLOOD, URINE NEG (NEG); GLUCOSE,URINE NEG (NEG); HYALINE CAST, URINE 3 /lpf (RARE); KETONE, URINE NEG (NEG); NITRITE,URINE NEG (NEG); PH, URINE 5.5 (5.0-8.5); SQUAMOUS EPITHELIAL CELL URINE 1 /hpf (0-5); URINE COLOR YELLOW (YELLW/STRAW); URINE LEUKOCYTE ESTERASE NEG (NEG)
[2018-03-08 16:52] LABS: POLYS (SEG NEUTROPHILS) 79 % (16-70)
[2018-03-08 16:58] LABS: ALBUMIN 2.3 GM/DL (3.4-5.0); ALT (GPT) 26 U/L (10-53); AST (GOT) 19 U/L (15-37); DIRECT BILIRUBIN ADULT LESS THAN 0.1 MG/DL (0.0-0.2)
[2018-03-08 17:00] LABS: ALKALINE PHOSPHATASE 185 U/L (45-117); TOTAL BILIRUBIN ADULT 0.1 MG/DL (0.2-1.0); TOTAL PROTEIN 6.3 GM/DL (6.4-8.2)
[2018-03-08] MEDS ORDERED: PENICILLIN G POT 5,000,000 UNITS/NS 100 ML (Mini-Bag Plus) IV ONE ×2 (18:30)
[2018-03-08] MEDS ORDERED: OXYTOCIN 30 UNITS/NS 500ML PREMIX IV PRN (22:15)
[2018-03-08] MEDS: PENICILLIN G POT 2,500,000 UNITS/NS 100 ML IV SCH ×2 (22:19)
[2018-03-09] MEDS: PENICILLIN G POT 2,500,000 UNITS/NS 100 ML IV SCH ×6 (02:19→10:56)
[2018-03-09] MEDS ORDERED: ePHEDrine/NS 25 MG/5 ML SYRINGE ONE ×2 (03:20→04:23)
[2018-03-09] MEDS ORDERED: fentaNYL 2MCG-BUPIV 0.125% INJ 150 ML EPIDURAL ONE (03:20)
[2018-03-09] MEDS ORDERED: LIDOCAINE HCL 1% PF 5 ML AMPULE ONE (03:35)
[2018-03-09] MEDS ORDERED: LIDOCAINE 1.5%/EPINEPHrine 1:200,000 PF 5 ML AMP ONE (03:35)
[2018-03-09] MEDS: LACTATED RINGER'S 1000 ML INJ 1,000 ML IV SCH ×3 (03:41→14:51)
[2018-03-09] MEDS ORDERED: NO SYSTEM NARCOTICS PRN (04:00)
[2018-03-09] MEDS ORDERED: DO NOT ADMINISTER ANTICOAGULANTS PRN (04:00)
[2018-03-09] MEDS: ePHEDrine/NS 25 MG/5 ML SYRINGE IV PUSH PRN ×4 (04:07→04:36)
[2018-03-09] MEDS ORDERED: fentaNYL 2MCG-BUPIV 0.125% 150 ML EPIDURAL PRN (05:15)
--- NOTE | 2018-03-09 07:37 | HHI.HP ---
HPI Chief Complaint 35 week twin nullip with 26% growth discordancy and significant cervical change for arom HPI; 33 yo mwf G1 with mono/di girls: twin A EFW 5# 8 ounces and Twin B EFW 4 # 1 ounce; otherwise reassuring surveillance, with cervix 3-4/100%/-1 in office , admitted last night for AROM and trial of labor. Received steroids and neuroprotection with Magnesium at an earlier admission and brought in for the above. BP was also mildly elevated at 132/84, 5 pound weight gain in 4 days but no N,V,BECK,blurred vision or RUQT. GFM x 2. No leaking, bleeding but irregular UC's noted. Brought in last night and arom at 6pm clear. During night second baby difficult to trace and after augmentation, contractions became painful and obtained epidural. This went higher than expected with no compromise and this am she is resting quietly. Cervix now 7+/100% and 0 station. Strips category one. O+/ pap normal (history of LEEP), serology negative; VZ and rubella immune; glucola 121; no GBS performed. Date Seen: March 09, 2018 Time Seen: 07:32 Travel History International Travel<30 Days: No Contact w/Intl Traveler<30Days: No Known Affected Area: No History of Present Illness HPI as above Weeks Gestation: 35 Para: 0 : 1 History Past Medical History Medical History: Denies Significant Hx Past Surgical History Surgical History: No Previous Surgery Family History Family History: Negative Social History Alcohol Use: No Tobacco Use: No Substance Abuse: No Allergies-Medications (Allergen,Severity, Reaction): Coded Allergies: No Known Allergies (Verified Allergy, Unknown, 03/08/18) Home Meds Reported Medications Vit,Calc76/Iron/Folic (Pnv 29-1 Tablet) 29 Mg Iron-1 Mg Tablet, 1 TAB PO DAILY 02/28/18 Omeprazole (Omeprazole) 20 Mg Tab, 20 MG PO DAILY, TAB 0 Refills 08/16/17 Review of Systems General / Constitutional: No: Fever, Weight Gain, Chills, Other Eyes: No: Diploplia, Blurred Vision, Visual changes, Pain, Photophobia HENT: No: Headaches, Vertigo, Lightheadedness Cardiovascular: No: Irregular Rhythm, Chest Pain or Discomfort, Palpitations, Tachycardia, Syncope, Varicosities, Edema, Cyanosis Respiratory: No: Cough, Short of Breath, Other Gastrointestinal: No: Nausea, Vomiting, Diarrhea Genitourinary: No: Decreased Urinary Output, Oliguria Musculoskeletal: No: Limited ROM, Weakness, Cramping, Edema, Pain Skin: No Rash, No Itching, No Dryness, No Lumps, No Change in Pigmentation, No Change in Nails, No Alopecia, No Lesions Neurologic: No: Weakness, Dizziness, Syncope, Focal Abnormalities, Coordination Problem, Headache, Slurred Speech, Seizures Psychiatric: No: Depression, Suicidal Ideations, Homicidal Ideation Endocrine: No: Heat Intolerance, Cold Intolerance, Polydipsia, Polyuria, Other Physical Exam Vital Signs Date Time Temp Pulse Resp B/P (MAP) Pulse Ox O2 Delivery O2 Flow Rate FiO2 03/09/18 06:15 17 03/09/18 03:22 16 Narrative GENERAL: Well-nourished, well-developed patient. SKIN: Warm and dry. HEAD: Normocephalic and atraumatic. EYES: No scleral icterus. No injection or drainage. ENT: No nasal drainage noted. Mucous membranes pink. Airway patent. NECK: Supple, trachea midline. No JVD. CARDIOVASCULAR: Regular rate and rhythm without murmurs, gallops, or rubs. RESPIRATORY: Breath sounds equal bilaterally. No accessory muscle use. BREASTS: Bilateral exam showed no masses , no retractions, no nipple discharge. ABDOMEN/GI: Abdomen soft, non-tender, bowel sounds present, no rebound, no guarding FH 38 cm 7+/100%/0 vertex twin A Arom; clear fluid strips category 1 UCs every 3-5 minutes and moderate to palpation EXTREMITIES: No cyanosis or edema. BACK: Nontender without obvious deformity. No CVA tenderness. NEUROLOGICAL: Awake and alert. Motor and sensory grossly within normal limits. Five out of 5 muscle strength in all muscle groups. Normal speech. Caprini VTE Risk Assessment Caprini VTE Risk Assessment: No/Low Risk (score <= 1) Caprini Risk Assessment Model Point Value = 1 Point Value = 2 Point Value = 3 Point Value = 5 Age 41-60 Minor surgery BMI > 25 kg/m2 Swollen legs Varicose veins or History of unexplained or recurrent spontaneous Oral contraceptives or hormone replacement Sepsis (< 1 month) Serious lung disease, including pneumonia (< 1 month) Abnormal pulmonary function Acute myocardial infarction Congestive heart failure (< 1 month) History of inflammatory bowel disease Medical patient at bed rest Age 61-74 Arthroscopic surgery Major open surgery (> 45 min) Laparoscopic surgery (> 45 min) Malignancy Confined to bed (> 72 hours) Immobilizing plaster cast Central venous access Age >= 75 History of VTE Family history of VTE Factor V Leiden Prothrombin [id number] Lupus anticoagulant Anticardiolipin antibodies Elevated serum homocysteine Heparin-induced thrombocytopenia Other congenital or acquired thrombophilia Stroke (< 1 month) Elective arthroplasty Hip, pelvis, or leg fracture Acute spinal cord injury (< 1 month) Prophylaxis Regimen Total Risk Factor Score Risk Level Prophylaxis Regimen 0-1 Low Early ambulation 2 Moderate Order ONE of the following: *Sequential Compression Device (SCD) *Heparin 5000 units SQ BID 3-4 Higher Order ONE of the following medications: *Heparin 5000 units SQ TID *Enoxaparin/Lovenox 40 mg SQ daily (WT < 150 kg, CrCl > 30 mL/min) *Enoxaparin/Lovenox 30 mg SQ daily (WT < 150 kg, CrCl > 10-29 mL/min) *Enoxaparin/Lovenox 30 mg SQ BID (WT < 150 kg, CrCl > 30 mL/min) AND/OR *Sequential Compression Device (SCD) 5 or more Highest Order ONE of the following medications: *Heparin 5000 units SQ TID (Preferred with Epidurals) *Enoxaparin/Lovenox 40 mg SQ daily (WT < 150 kg, CrCl > 30 mL/min) *Enoxaparin/Lovenox 30 mg SQ daily (WT < 150 kg, CrCl > 10-29 mL/min) *Enoxaparin/Lovenox 30 mg SQ BID (WT < 150 kg, CrCl > 30 mL/min) AND *Sequential Compression Device (SCD) Data Data Orders Orders Admit To Inpatient (03/08/18 ) Vital Signs (Adult) .Per protocol (03/08/18 14:21) Heart (03/08/18 14:21) Amnioinfusion (03/08/18 14:21) Urinary Catheter Management .ONCE (03/08/18 14:21) Diet Liquid (03/08/18 Dinner) Lactated Ringer's 1000 Ml Inj (Lr 1000 M (03/08/18 14:21) Lactated Ringer's 1000 Ml Inj (Lr 1000 M (03/08/18 14:21) Sodium Chlorid 0.9% 500 Ml Inj (Ns 500 M (03/08/18 14:30) Sodium Chlor 0.9% 1000 Ml Inj (Ns 1000 M (03/08/18 14:41) Lidocaine 1% Inj (50 Ml) (Xylocaine 1% I (03/08/18 14:30) Citric Acid-Sodium Citrate Liq (Bicitra (03/08/18 14:30) Fentanyl Inj (Fentanyl Inj) (03/08/18 14:30) Fentanyl Inj (Fentanyl Inj) (03/08/18 14:30) Complete Blood Count With Diff (03/08/18 14:21) Hold Clot (03/08/18 14:21) Abo/Rh Blood Type (03/08/18 14:21) Urinalysis - C+S If Indicated (03/08/18 14:21) Ob/Psych Drug Screen, Urine (03/08/18 14:21) Resp Oxygen Non Rebreathe Mask (03/08/18 ) ^ Epidural / Intrathecal Infus (03/08/18 14:21) Oxytocin 30 Units-500ml Premix (Pitocin (03/08/18 14:30) Lidocaine 1% Inj (50 Ml) (Xylocaine 1% I (03/08/18 14:30) Light Mineral Oil (Muri-Lube Oil) (03/08/18 14:30) Inpatient Certification (03/08/18 ) Specimen To Be Collected PRN (03/08/18 14:21) Specimen To Be Collected PRN (03/08/18 14:21) Hepatic Functional Panel (03/08/18 14:21) Acetaminophen (Tylenol) (03/08/18 16:00) Penicillin G Potassium Inj (Pfizerpen-G (03/08/18 18:30) Penicillin G Potassium Inj (Pfizerpen-G (03/08/18 22:30) Oxytocin 30 Units-500ml Premix (Pitocin (03/08/18 22:15) Fentanyl 2mcg-Bupiv 0.125% Inj (Fentanyl (03/09/18 03:20) Ephedrine/Ns 25 Mg/5 Ml Syr (Ephedrine/N (03/09/18 03:20) ^ Place On Chart (03/09/18 ) ^ Medication Indications (03/09/18 ) Consent (03/09/18 ) ^ No Systemic Narcotics (03/09/18 ) ^ Call Anesthesiologist (03/09/18 ) ^ Discontinue Epidural Cathete (03/09/18 ) Anticoagulant Alert (03/09/18 ) ^ Epidural Alert (03/09/18 ) Lido-Epi Pf 1.5%-1:200,000 Inj (Xylocain (03/09/18 03:35) Lidocaine Pf 1% Inj (Xylocaine-Mpf 1% In (03/09/18 03:35) Ephedrine/Ns 25 Mg/5 Ml Syr (Ephedrine/N (03/09/18 04:23) Nursing Information ([facility] [place] [facility] (03/09/18 04:00) Nursing Information ([facility] [place] [facility] (03/09/18 04:00) Fentanyl Inj (Fentanyl Inj) (03/09/18 04:00) Fentanyl 2mcg-Bupiv 0.125% Inj (Fentanyl (03/09/18 05:15) Ephedrine/Ns 25 Mg/5 Ml Syr (Ephedrine/N (03/09/18 05:15) Labs Laboratory Tests Test 03/08/18 15:00 03/08/18 16:00 White Blood Count 13.8 Red Blood Count 4.62 Hemoglobin 11.5 Hematocrit 35.4 Mean Corpuscular Volume 76.6 Mean Corpuscular Hemoglobin 24.9 Mean Corpuscular Hemoglobin Concent 32.5 Red Cell Distribution Width 15.0 Platelet Count 246 Mean Platelet Volume 8.0 Neutrophils (%) (Auto) 75.9 Lymphocytes (%) (Auto) 15.1 Monocytes (%) (Auto) 8.1 Eosinophils (%) (Auto) 0.8 Basophils (%) (Auto) 0.1 Neutrophils # (Auto) 10.5 Lymphocytes # (Auto) 2.1 Monocytes # (Auto) 1.1 Eosinophils # (Auto) 0.1 Basophils # (Auto) 0.0 CBC Comment AUTO DIFF Differential Total Cells Counted 100 Neutrophils % (Manual) 79 Band Neutrophils % 2 Lymphocytes % 12 Monocytes % 5 Neutrophils # (Manual) 11.5 Metamyelocytes 2 Differential Comment FINAL DIFF MANUAL Platelet Estimate NORMAL Platelet Morphology Comment NORMAL Total Bilirubin 0.1 Direct Bilirubin LESS THAN 0.1 Indirect Bilirubin 0.0 Aspartate Amino Transf (AST/SGOT) 19 Alanine Aminotransferase (ALT/SGPT) 26 Alkaline Phosphatase 185 Total Protein 6.3 Albumin 2.3 Urine Color YELLOW Urine Turbidity CLEAR Urine pH 5.5 Urine Specific [place] 1.018 Urine Protein TRACE Urine Glucose (UA) NEG Urine Ketones NEG Urine Occult Blood NEG Urine Nitrite NEG Urine Bilirubin NEG Urine Urobilinogen LESS THAN 2.0 Urine Leukocyte Esterase NEG Urine RBC LESS THAN 1 Urine WBC 1 Urine Squamous Epithelial Cells 1 Urine Hyaline Casts 3 Microscopic Urinalysis Comment CULT NOT INDICATED Urine Opiates Screen NEG Urine Barbiturates Screen NEG Urine Amphetamines Screen NEG Urine Benzodiazepines Screen NEG Urine Cocaine Screen NEG Urine Cannabinoids Screen NEG Assessment/Plan Problem List: (1) Monochorionic diamniotic twin gestation in third trimester ICD Codes: O30.033 - Twin , monochorionic/diamniotic, third trimester Status: Acute Assessment and Plan continue to labor until complete and then to double set up. anticipate x 2; counseled on all possibilities Michelle Serrano MD March 09, 2018 07:37
[2018-03-09] MEDS ORDERED: CARBOPROST TROMETHAMINE 250 MCG/ML VIAL ONE (12:16)
[2018-03-09] MEDS ORDERED: METHYLERGONOVINE MALEATE 0.2 MG/ML VIAL ONE (12:29)
[2018-03-09] MEDS ORDERED: LACTATED RINGER'S 1000 ML INJ 1,000 ML IV SCH ×2 (12:41)
--- NOTE | 2018-03-09 12:41 | PD.OB.DELI ---
Weeks gestation: 35 Gest age assessed date: March 08, 2018 Gest age assessed time: 18:00 Active labor start date: March 09, 2018 Active labor start time: 07:00 Medical induction of labor?: Yes Medical induction start date: March 08, 2018 Medical induction start time: 18:00 Artificial rupture of membrane: Yes Artificial ROM date: March 08, 2018 Artifical ROM time: 18:00 Anesthesia: Epidural Episiotomy: None Vaginal Delivery: Normal Presentation: Occiput anterior, Breech Nuchal Cord: x1, Other (for both girls) Infant: Female, Multiple Delivery date: March 09, 2018 Delivery time: 12:15 Weight: 5 pound 1 ounce and 4 pound 1 ounce Placenta: Spontaneous delivery Laceration: No lacerations Estimated blood loss: 1200 Additional Information twin A delivered from SHIRA with nuchal cord x 1 that required to be cut before delivery of body. 5 pounds 1 ounce Apgars 8 at 1 and 9 at 5 twin B found to be compound position with one foot lower uterus -- not a vertable position so delivered by breech extraction 4 pounds 1 ounce Apgars 6 at 1 and 8 at 5 Post bleeding very brisk over 10 minutes despite bimanual massage, clot extraction, methergine and hemobate. EBL 1200 before consistent uterine contraction obtained maternal pulse 140 but BP excellent and she is not symptomatic. Will continue oral methergine and give venifer and type and cross in case. Michelle Serrano MD March 09, 2018 12:41
[2018-03-09] MEDS ORDERED: SODIUM CHLORIDE 0.9% FLUSH 10 ML FLUSH IV FLUSH PRN (12:45)
[2018-03-09] MEDS ORDERED: OXYTOCIN 30 UNITS-500ML PREMIX 500 ML IV ONE (12:45)
[2018-03-09] MEDS ORDERED: ALUMINUM/MAGNESIUM/SIMETH 30 ML CUP PO PRN (12:45)
[2018-03-09] MEDS ORDERED: ZOLPIDEM TARTRATE 5 MG TAB PO PRN (12:45)
[2018-03-09] MEDS ORDERED: BENZOCAINE 20% TOPICAL SPRAY 60 ML CAN TOPICAL PRN (12:45)
[2018-03-09] MEDS ORDERED: WITCH HAZEL 50%/GLYCERIN 12.5% 40 PAD JAR TOPICAL PRN (12:45)
[2018-03-09] MEDS ORDERED: DOCUSATE SODIUM 50 MG/SENNA 8.6 MG TAB PO PRN (12:45)
[2018-03-09] MEDS ORDERED: ONDANSETRON ODT 4 MG TAB PO PRN (12:45)
[2018-03-09] MEDS ORDERED: OXYTOCIN 30 UNITS-500ML PREMIX 500 ML IV SCH (12:45)
[2018-03-09] MEDS: IBUPROFEN 800 MG TAB PO PRN ×2 (14:51→23:02)
[2018-03-09] MEDS ORDERED: METHYLERGONOVINE MALEATE 0.2 MG TAB PO SCH (16:00)
[2018-03-09] MEDS ORDERED: DIPHTH/TETANUS/ACEL PERTUSSIS (BOOSTER) 0.5 ML VIAL/PFS IM ONE (16:00)
[2018-03-09] MEDS ORDERED: MEASLES, MUMPS, RUBELLA VACCINE 0.5 ML VIAL SQ ONE (16:00)
[2018-03-09] MEDS: ACETAMINOPHEN 325 MG TAB PO PRN ×2 (18:54→23:01)
[2018-03-09 20:05] VITALS: BP 110/63; PULSE 103; RESP 18; TEMP 98.1
[2018-03-10 01:53] LABS: AUTOMATED NEUTROPHIL # 9.1 TH/MM3 (1.8-7.7); BASOPHIL % 0.2 % (0.0-2.0); EOSINOPHIL # 0.1 TH/MM3 (0-0.4); EOSINOPHIL % 0.8 % (0.0-4.0); LYMPH % 13.7 % (9.0-44.0); LYMPHOCYTE # 1.7 TH/MM3 (1.0-4.8); MEAN CORPUSCULAR HEMOGLOBIN 25.2 PG (27.0-34.0); MEAN CORPUSCULAR HGB CONC 32.7 % (32.0-36.0); MEAN PLATELET VOLUME 7.5 FL (7.0-11.0); MONO % 12.8 % (0.0-8.0); MONOCYTE # 1.6 TH/MM3 (0-0.9); NEUT % 72.5 % (16.0-70.0); PLATELET COUNT 177 TH/MM3 (150-450); RED BLOOD COUNT 2.61 MIL/MM3 (4.00-5.30); RED CELL DISTRIBUTION WIDTH 15.1 % (11.6-17.2); WHITE BLOOD COUNT 12.5 TH/MM3 (4.0-11.0)
[2018-03-10 01:58] LABS: HEMATOCRIT 20.1 % (35.0-46.0); HEMOGLOBIN 6.6 GM/DL (11.6-15.3)
[2018-03-10] MEDS: ACETAMINOPHEN 325 MG TAB PO PRN (06:22)
[2018-03-10] MEDS: IBUPROFEN 800 MG TAB PO PRN ×3 (06:23→22:03)
--- NOTE | 2018-03-10 07:43 | HHI.OB ---
Subjective Post Day: 1 Remarks states she is feeling well today. She denies any weakness, shortness of breath , palpitations. She was able to ambulate and shower without difficulty. VB like menses. Objective Vitals/I&O Vital Signs Date Time Temp Pulse Resp B/P (MAP) Pulse Ox O2 Delivery O2 Flow Rate FiO2 03/09/18 20:05 98.1 103 18 110/63 (79) Objective Remarks GENERAL: Well-nourished, well-developed patient. CARDIOVASCULAR: Regular rate and rhythm without murmurs, gallops, or rubs. RESPIRATORY: Breath sounds equal bilaterally. No accessory muscle use. ABDOMEN/GI: Abdomen soft, non-tender. Fundus: Firm, non-tender at umbilicus. GENITOURINARY: Light to moderate bleeding. EXTREMITIES: No cyanosis or edema, non-tender, without signs of DVT. Medications and IVs Current Medications Medications (Trade) Dose Ordered Sig/Nedra Route Start Time Stop Time Status Last Admin Lactated Ringer's 1,000 ml @ 125 mls/hr Q8H IV 03/08/18 14:21 03/09/18 14:51 Lactated Ringer's 1,000 ml @ 3,000 mls/hr Q20M PRN IV 03/08/18 14:21 Sodium Chloride 1,000 ml @ 100 mls/hr Q10H PRN IV 03/08/18 14:41 (Xylocaine 1% Inj (50 ml)) 0.1 ml UNSCH X1 PRN I-DERMAL 03/08/18 14:30 03/11/18 14:29 (Bicitra Liq) 30 ml DESKTOP SUPPORT MANAGER PO 03/08/18 14:30 03/12/18 14:29 (fentaNYL INJ) 50 mcg Q1H PRN IV PUSH 03/08/18 14:30 03/09/18 02:22 (fentaNYL INJ) 100 mcg Q1H PRN IV PUSH 03/08/18 14:30 (Xylocaine 1% Inj (50 ml)) 10 ml UNSCH X1 PRN INFIL 03/08/18 14:30 03/10/18 14:29 (Muri-Lube Oil) 10 ml UNSCH PRN TOPICAL 03/08/18 14:30 Penicillin G Potassium 9087246 units/Sodium Chloride 100 ml @ 200 mls/hr Q4H IV 03/08/18 22:30 03/09/18 10:56 Oxytocin 500 ml @ 0 mls/hr TITRATE PRN IV 03/08/18 22:15 03/08/18 22:17 Fentanyl/ Bupivacaine/ Sodium Chlor 150 ml @ 0 mls/hr TITRATE PRN EPIDURAL 03/09/18 05:15 03/09/18 05:45 (NS Flush) 2 ml BID IV FLUSH 03/09/18 21:00 (NS Flush) 2 ml UNSCH PRN IV FLUSH 03/09/18 12:45 (Tylenol) 650 mg Q4H PRN PO 03/09/18 12:45 03/10/18 06:22 (Motrin) 800 mg Q8H PRN PO 03/09/18 12:45 03/10/18 06:23 (Americaine 20% Top Spr) 1 spray Q4H PRN TOPICAL 03/09/18 12:45 03/09/18 15:05 (Tucks Pads) 1 applic QID PRN TOPICAL 03/09/18 12:45 03/09/18 15:05 (Mita-Colace) 2 tab Q12H PRN PO 03/09/18 12:45 (Ambien) 5 mg HS PRN PO 03/09/18 12:45 (Mag-Al Plus Susp Liq) 15 ml Q8H PRN PO 03/09/18 12:45 (Zofran Odt) 4 mg Q6H PRN PO 03/09/18 12:45 03/09/18 13:15 Lactated Ringer's 1,000 ml @ 500 mls/hr Q2H IV 03/09/18 12:41 Lactated Ringer's 1,000 ml @ 200 mls/hr Q5H IV 03/09/18 12:41 (Methergine) 0.2 mg Q4HR PO 03/09/18 16:00 03/10/18 12:01 Iron Sucrose 200 mg/Sodium Chloride 110 ml @ 110 mls/hr ONCE ONCE IV 03/10/18 09:00 03/10/18 09:59 Assessment/Plan Problem List: (1) Monochorionic diamniotic twin gestation in third trimester ICD Codes: O30.033 - Twin , monochorionic/diamniotic, third trimester Status: Acute Assessment and Plan ppd 1 s p vacuum assisted vaginal delivery then footling breech extraction of mono di twins pph hgb 6.6, if symptomatic will offer blood transfusion; she denies any symptoms at this time. IV iron ordered. Repeat cbc at noon. Methergine TID today. Babies in NICU Michelle Palacios MD March 10, 2018 07:43
[2018-03-10] MEDS: METHYLERGONOVINE MALEATE 0.2 MG TAB PO SCH ×4 (08:25→22:02)
[2018-03-10] MEDS: SODIUM CHLORIDE 0.9% FLUSH 10 ML FLUSH IV FLUSH SCH ×2 (08:32→22:02)
[2018-03-10] MEDS ORDERED: IRON SUCROSE INJ 200 MG in SODIUM CHLORIDE 0.9% INJ 100 ML IV ONE (09:00)
--- NOTE | 2018-03-10 09:07 | HHI.OB ---
Subjective Post Day: 1 Remarks comfortable despite significant blood loss at delivery (EBL ~ 1200) hgb 6.6 has already been up to shower and see babies Tanmay will likely go home; Amy needs weight gain Objective Vitals/I&O Vital Signs Date Time Temp Pulse Resp B/P (MAP) Pulse Ox O2 Delivery O2 Flow Rate FiO2 03/09/18 20:05 98.1 103 18 110/63 (79) Objective Remarks GENERAL: Well-nourished, well-developed patient. CARDIOVASCULAR: Regular rate and rhythm without murmurs, gallops, or rubs. RESPIRATORY: Breath sounds equal bilaterally. No accessory muscle use. ABDOMEN/GI: Abdomen soft, non-tender. Fundus: Firm, non-tender at umbilicus. GENITOURINARY: Light to moderate bleeding. EXTREMITIES: No cyanosis or edema, non-tender, without signs of DVT. Medications and IVs Current Medications Medications (Trade) Dose Ordered Sig/Nedra Route Start Time Stop Time Status Last Admin Lactated Ringer's 1,000 ml @ 125 mls/hr Q8H IV 03/08/18 14:21 03/09/18 14:51 Lactated Ringer's 1,000 ml @ 3,000 mls/hr Q20M PRN IV 03/08/18 14:21 Sodium Chloride 1,000 ml @ 100 mls/hr Q10H PRN IV 03/08/18 14:41 (Xylocaine 1% Inj (50 ml)) 0.1 ml UNSCH X1 PRN I-DERMAL 03/08/18 14:30 03/11/18 14:29 (Bicitra Liq) 30 ml SUPERVISOR [employer] PO 03/08/18 14:30 03/12/18 14:29 (fentaNYL INJ) 50 mcg Q1H PRN IV PUSH 03/08/18 14:30 03/09/18 02:22 (fentaNYL INJ) 100 mcg Q1H PRN IV PUSH 03/08/18 14:30 (Xylocaine 1% Inj (50 ml)) 10 ml UNSCH X1 PRN INFIL 03/08/18 14:30 03/10/18 14:29 (Muri-Lube Oil) 10 ml UNSCH PRN TOPICAL 03/08/18 14:30 Penicillin G Potassium [id number] units/Sodium Chloride 100 ml @ 200 mls/hr Q4H IV 03/08/18 22:30 03/09/18 10:56 Oxytocin 500 ml @ 0 mls/hr TITRATE PRN IV 03/08/18 22:15 03/08/18 22:17 Fentanyl/ Bupivacaine/ Sodium Chlor 150 ml @ 0 mls/hr TITRATE PRN EPIDURAL 03/09/18 05:15 03/09/18 05:45 (NS Flush) 2 ml BID IV FLUSH 03/09/18 21:00 03/10/18 08:32 (NS Flush) 2 ml UNSCH PRN IV FLUSH 03/09/18 12:45 (Tylenol) 650 mg Q4H PRN PO 03/09/18 12:45 03/10/18 06:22 (Motrin) 800 mg Q8H PRN PO 03/09/18 12:45 03/10/18 06:23 (Americaine 20% Top Spr) 1 spray Q4H PRN TOPICAL 03/09/18 12:45 03/09/18 15:05 (Tucks Pads) 1 applic QID PRN TOPICAL 03/09/18 12:45 03/09/18 15:05 (Mita-Colace) 2 tab Q12H PRN PO 03/09/18 12:45 (Ambien) 5 mg HS PRN PO 03/09/18 12:45 (Mag-Al Plus Susp Liq) 15 ml Q8H PRN PO 03/09/18 12:45 (Zofran Odt) 4 mg Q6H PRN PO 03/09/18 12:45 03/09/18 13:15 Lactated Ringer's 1,000 ml @ 500 mls/hr Q2H IV 03/09/18 12:41 Lactated Ringer's 1,000 ml @ 200 mls/hr Q5H IV 03/09/18 12:41 Iron Sucrose 200 mg/Sodium Chloride 110 ml @ 110 mls/hr ONCE ONCE IV 03/10/18 09:00 03/10/18 09:59 03/10/18 08:31 (Percocet 5-325 Mg) 1 tab Q6H PRN PO 03/10/18 08:45 UNV (Methergine) 0.2 mg Q4HR PO 03/10/18 08:00 03/11/18 00:01 UNV Assessment/Plan Problem List: (1) Monochorionic diamniotic twin gestation in third trimester ICD Codes: O30.033 - Twin , monochorionic/diamniotic, third trimester Status: Acute Assessment and Plan ppd 1 s p vacuum assisted vaginal delivery then footling breech extraction of mono di twins pph hgb 6.6, if symptomatic will offer blood transfusion; she denies any symptoms at this time. IV iron ordered. Repeat cbc at noon. Methergine TID today. Babies in NICU Mihcelle Serrano MD March 10, 2018 09:07
--- NOTE | 2018-03-10 11:14 | HHI.DCPOC ---
Discharge Care Plan Report Symptoms to Your Doctor -Temperature above 100.5 degrees -Redness, of incision or excessive or foul smelling drainage -Unusual pain or calf pain -Increased vaginal bleeding -Painful or difficulty urinating -Feelings of extreme sadness or anxiety after 2 weeks Goals to Promote Your Health * To prevent worsening of your condition and complications * To maintain your health at the optimal level Directions to Meet Your Goals Take your medications as prescribed Follow your dietary instruction Follow activity as directed Ensure plenty of rest for recovery Drink fluids for hydration Keep your appointments as scheduled Take your immunizations and boosters as scheduled If your symptoms worsen call your PCP, if no PCP go to Urgent Care Center or Emergency Room Smoking is Dangerous to Your Health. Avoid second hand smoke Call the 24-hour crisis hotline for domestic abuse at Michelle Serrano MD March 10, 2018 11:14
[2018-03-10] MEDS: oxyCODONE/ACETAMINOPHEN 5 MG/325 MG TAB PO PRN ×3 (12:59→23:50)
[2018-03-10 14:03] LABS: BASOPHIL % 0.3 % (0.0-2.0); EOSINOPHIL # 0.1 TH/MM3 (0-0.4); EOSINOPHIL % 0.6 % (0.0-4.0); HEMATOCRIT 21.7 % (35.0-46.0); LYMPH % 16.4 % (9.0-44.0); MEAN CELL VOLUME 78.1 FL (80.0-100.0); MEAN CORPUSCULAR HEMOGLOBIN 25.2 PG (27.0-34.0); MEAN CORPUSCULAR HGB CONC 32.2 % (32.0-36.0); MEAN PLATELET VOLUME 7.5 FL (7.0-11.0); MONO % 8.2 % (0.0-8.0); NEUT % 74.5 % (16.0-70.0); PLATELET COUNT 174 TH/MM3 (150-450); RED BLOOD COUNT 2.78 MIL/MM3 (4.00-5.30); RED CELL DISTRIBUTION WIDTH 15.2 % (11.6-17.2)
[2018-03-10 20:37] VITALS: BP 126/83; PULSE 106; RESP 19; TEMP 98.4
[2018-03-11] MEDS: METHYLERGONOVINE MALEATE 0.2 MG TAB PO SCH (01:14)
[2018-03-11] MEDS: LACTATED RINGER'S 1000 ML INJ 1,000 ML IV SCH (04:28)
[2018-03-11 05:56] LABS: AUTOMATED NEUTROPHIL # 6.3 TH/MM3 (1.8-7.7); BASOPHIL % 0.2 % (0.0-2.0); EOSINOPHIL # 0.1 TH/MM3 (0-0.4); EOSINOPHIL % 1.6 % (0.0-4.0); LYMPH % 19.8 % (9.0-44.0); LYMPHOCYTE # 1.8 TH/MM3 (1.0-4.8); MEAN CELL VOLUME 77.8 FL (80.0-100.0); MEAN CORPUSCULAR HEMOGLOBIN 25.7 PG (27.0-34.0); MEAN PLATELET VOLUME 7.7 FL (7.0-11.0); MONO % 9.4 % (0.0-8.0); MONOCYTE # 0.9 TH/MM3 (0-0.9); PLATELET COUNT 148 TH/MM3 (150-450); RED BLOOD COUNT 2.61 MIL/MM3 (4.00-5.30); WHITE BLOOD COUNT 9.1 TH/MM3 (4.0-11.0)
[2018-03-11 06:03] LABS: HEMOGLOBIN 6.7 GM/DL (11.6-15.3)
[2018-03-11 06:04] LABS: HEMATOCRIT 20.3 % (35.0-46.0)
[2018-03-11] MEDS: IBUPROFEN 800 MG TAB PO PRN (06:06)
[2018-03-11] MEDS: oxyCODONE/ACETAMINOPHEN 5 MG/325 MG TAB PO PRN ×2 (06:06→13:42)
--- NOTE | 2018-03-11 08:44 | HHI.OB ---
Subjective Post Day: 2 Remarks s/p twins in nicu, ht=20 today, feels fine Objective Vitals/I&O Vital Signs Date Time Temp Pulse Resp B/P (MAP) Pulse Ox O2 Delivery O2 Flow Rate FiO2 03/10/18 20:37 98.4 106 19 126/83 (97) Objective Remarks GENERAL: Well-nourished, well-developed patient. CARDIOVASCULAR: Regular rate and rhythm without murmurs, gallops, or rubs. RESPIRATORY: Breath sounds equal bilaterally. No accessory muscle use. ABDOMEN/GI: Abdomen soft, non-tender. Fundus: Firm, non-tender at umbilicus. GENITOURINARY: Light to moderate bleeding. EXTREMITIES: No cyanosis or edema, non-tender, without signs of DVT. Medications and IVs Current Medications Medications (Trade) Dose Ordered Sig/Nedra Route Start Time Stop Time Status Last Admin Lactated Ringer's 1,000 ml @ 125 mls/hr Q8H IV 03/08/18 14:21 03/09/18 14:51 Lactated Ringer's 1,000 ml @ 3,000 mls/hr Q20M PRN IV 03/08/18 14:21 Sodium Chloride 1,000 ml @ 100 mls/hr Q10H PRN IV 03/08/18 14:41 (Xylocaine 1% Inj (50 ml)) 0.1 ml UNSCH X1 PRN I-DERMAL 03/08/18 14:30 03/11/18 14:29 (Bicitra Liq) 30 ml SERVICE DISPATCHER PO 03/08/18 14:30 03/12/18 14:29 (fentaNYL INJ) 50 mcg Q1H PRN IV PUSH 03/08/18 14:30 03/09/18 02:22 (fentaNYL INJ) 100 mcg Q1H PRN IV PUSH 03/08/18 14:30 (Muri-Lube Oil) 10 ml UNSCH PRN TOPICAL 03/08/18 14:30 Penicillin G Potassium [id number] units/Sodium Chloride 100 ml @ 200 mls/hr Q4H IV 03/08/18 22:30 03/09/18 10:56 Oxytocin 500 ml @ 0 mls/hr TITRATE PRN IV 03/08/18 22:15 03/08/18 22:17 Fentanyl/ Bupivacaine/ Sodium Chlor 150 ml @ 0 mls/hr TITRATE PRN EPIDURAL 03/09/18 05:15 03/09/18 05:45 (NS Flush) 2 ml BID IV FLUSH 03/09/18 21:00 03/10/18 22:02 (NS Flush) 2 ml UNSCH PRN IV FLUSH 03/09/18 12:45 (Tylenol) 650 mg Q4H PRN PO 03/09/18 12:45 03/10/18 06:22 (Motrin) 800 mg Q8H PRN PO 03/09/18 12:45 03/11/18 06:06 (Americaine 20% Top Spr) 1 spray Q4H PRN TOPICAL 03/09/18 12:45 03/09/18 15:05 (Tucks Pads) 1 applic QID PRN TOPICAL 03/09/18 12:45 03/09/18 15:05 (Mita-Colace) 2 tab Q12H PRN PO 03/09/18 12:45 03/10/18 22:04 (Ambien) 5 mg HS PRN PO 03/09/18 12:45 03/11/18 01:14 (Mag-Al Plus Susp Liq) 15 ml Q8H PRN PO 03/09/18 12:45 (Zofran Odt) 4 mg Q6H PRN PO 03/09/18 12:45 03/09/18 13:15 Lactated Ringer's 1,000 ml @ 500 mls/hr Q2H IV 03/09/18 12:41 Lactated Ringer's 1,000 ml @ 200 mls/hr Q5H IV 03/09/18 12:41 (Percocet 5-325 Mg) 1 tab Q6H PRN PO 03/10/18 08:45 03/11/18 06:06 Assessment/Plan Problem List: (1) Monochorionic diamniotic twin gestation in third trimester ICD Codes: O30.033 - Twin , monochorionic/diamniotic, third trimester Status: Acute (2) Vaginal delivery ICD Codes: O80 - Encounter for full-term uncomplicated delivery Assessment and Plan ppd 2 s p vacuum assisted vaginal delivery then footling breech extraction of mono di twins pph hgb 6.6, if symptomatic will offer blood transfusion; she denies any symptoms at this time. IV iron ordered. . Babies in NICU Discharge Planning routine Attending Attestation pt seen by me Annelise Elizondo MD Mar 11, 2018 08:44
[2018-03-11] MEDS ORDERED: IBUP1TAB7 PO (08:46)
[2018-03-11] MEDS ORDERED: IRON SUCROSE INJ 100 MG in SODIUM CHLORIDE 0.9% INJ 100 ML IV ONE (10:00)
[2018-03-11 10:30] LABS: BANDS 4 % (0-6); LYMPHOCYTES 15 % (9-44); METAMYELOCYTES 1 % (0-1); MONOCYTES 7 % (0-8); NEUTROPHIL # MANUAL DIFF 7.1 TH/MM3 (1.8-7.7); POLYS (SEG NEUTROPHILS) 73 % (16-70)
[2018-03-11 10:31] LABS: TEARDROP RBCS 1+ (NORMAL)
== END 2018-03-11 14:10 | disposition home or self-care (01) | DRG 774 ==
LOC: H2EB 13:29 → H1EA 03-09 16:53
PROVIDERS: ADMIT Obstetrics & Gynecology; ATTEND Obstetrics & Gynecology
PROC: 10907ZC Drainage of Amniotic Fluid, Therapeutic from Products of Conception, Via Natural or Artificial Opening (ICD-10-PCS; 2018-03-08)
PROC: 3E033VJ Introduction of Other Hormone into Peripheral Vein, Percutaneous Approach (ICD-10-PCS; 2018-03-08)
PROC: 10D07Z6 Extraction of Products of Conception, Vacuum, Via Natural or Artificial Opening (ICD-10-PCS; principal; 2018-03-09)
PROC: 00HU33Z Insertion of Infusion Device into Spinal Canal, Percutaneous Approach (ICD-10-PCS; 2018-03-09)
PROC: 3E0R3BZ Introduction of Anesthetic Agent into Spinal Canal, Percutaneous Approach (ICD-10-PCS; 2018-03-09)
DX: O30.033 Twin pregnancy, monochorionic/diamniotic, third trimester (principal); O72.1 Other immediate postpartum hemorrhage; O32.1XX2 Maternal care for breech presentation, fetus 2; O69.81X1 Labor and delivery complicated by cord around neck, without compression, fetus 1; O69.81X2 Labor and delivery complicated by cord around neck, without compression, fetus 2; Z3A.35 35 weeks gestation of pregnancy; Z37.2 Twins, both liveborn
CPT/HCPCS: 59025; 80076; 80307; 81001; 85007; 85025; 85027; 85610; 85730; 86850; 86900; 86901; 88307; 99211; G0463; J1756; J2210; J2540; J2590; J3010; J7120